=== PATIENT | female | born 1945 | race Caucasian/White ===

== ENCOUNTER → 2016-10-29 | Outpatient (CLI) | payer MEDICARE, OTHER ==
[~2016-10-29] MED LIST: ASPIRIN E.C. 8181 MG PO; CA; FOSAMAX PO; GLUCOSAMINE & C1 CA1 PO; LEVOTHYROXINE PO; MVI; NO HOME MEDICATIONS; ZANTAC 150MG T150 MG PO
== END ==
LOC: MC.RAD 11:10
DX: Z12.31 Encounter for screening mammogram for malignant neoplasm of breast (principal); R92.1 Mammographic calcification found on diagnostic imaging of breast

== ENCOUNTER → 2017-11-25 | Outpatient (CLI) | payer MEDICARE, OTHER | LOC: MC.RAD 09:46 | DX: Z12.31 Encounter for screening mammogram for malignant neoplasm of breast (principal) ==

== ENCOUNTER → 2018-11-28 | Outpatient (CLI) | payer MEDICARE, OTHER | LOC: MC.RAD 13:30 | DX: Z12.31 Encounter for screening mammogram for malignant neoplasm of breast (principal) ==

== ENCOUNTER → 2019-12-03 | Outpatient (CLI) | payer MEDICARE, OTHER | LOC: MC.RAD 10:45 | DX: Z12.31 Encounter for screening mammogram for malignant neoplasm of breast (principal); Z90.10 Acquired absence of unspecified breast and nipple ==

== ENCOUNTER → 2020-12-13 | Outpatient (CLI) | payer MEDICARE | LOC: MC.RAD 11:30 | DX: Z12.31 Encounter for screening mammogram for malignant neoplasm of breast (principal) ==

== ENCOUNTER → 2022-01-15 | Outpatient (CLI) | payer MEDICARE | LOC: MC.RAD 10:02 | DX: Z12.31 Encounter for screening mammogram for malignant neoplasm of breast (principal) ==

== ENCOUNTER → 2023-10-03 | Outpatient (CLI) | payer MEDICARE ==
[~2023-10-03] MED LIST changes: +FOSAMAX 35MG35 MG PO; +LEVOXYL0.1 MG PO; +MOVE FREE JOIN1 EACH PO; +NORCO 325 MG-51 TAB PO; +OSCAL 500 TAB500 MG PO; +PRILOSEC 20MG20 MG PO; +TYLENOL 500MG500 MG PO; +VITAMIN D31000 I1 PO; +ZYRTEC 10MG10 MG PO
== END ==
LOC: MC.RAD 12:53
DX: C50.512 Malignant neoplasm of lower-outer quadrant of left female breast (principal)
CPT/HCPCS: A4648

== ENCOUNTER 2023-10-04 07:35 | Day surgery (SDC) | payer MEDICARE ==
[~2023-10-04] VITALS: Ht 165.1 cm; Wt 72.6 kg
[~2023-10-04 07:35] MED LIST changes: +LR 1,000 ML IV SCH
--- NOTE | 2023-10-04 08:10 | NUR ---
The patient arrived to [facility] escorted by radiology and apppeared to tolerate the activity well. The patient was shown to [place] [address] and appears to be restingo comfortably on the cart. Vital signs obtained. Consent signed. Home medications reconcilled. Warm blanket provided. Call light is within reach. Daughter brought back to be at her bedside. The patient is scheduled to go back to radiology at 0930 to have the remainder of her images taken. Once she returns to the units an IV will be started and her PreOp medications will be given.
[2023-10-04 08:22] VITALS: BP 154/78; PULSE 81; TEMP 97
--- NOTE | 2023-10-04 10:34 | NUR ---
The patient is back from radiology and was assisted back on the cart in her room. The patient was given fresh warm blankets. IV started in right hand with LR infusing without difficulty. Pre op medications were adminstered as ordered.
[2023-10-04] MEDS ORDERED: Midazolam 2 MG/2 ML VIAL ONE (10:37)
[2023-10-04] MEDS ORDERED: Lidocaine PF 2% (20 MG/ML) 5 ML VIAL ONE (10:37)
[2023-10-04] MEDS ORDERED: Ondansetron 4 MG/2 ML VIAL ONE (10:37)
[2023-10-04] MEDS ORDERED: fentaNYL 50 MCG/ML 2 ML VIAL ONE (10:37)
[2023-10-04] MEDS ORDERED: Lidocaine PF 2% (20 MG/ML) 5 ML VIAL SQ ONE ×2 (11:50)
[2023-10-04] MEDS ORDERED: Ondansetron 4 MG/2 ML VIAL IV PRN (13:15)
[2023-10-04] MEDS ORDERED: Morphine 4 MG/ML VIAL IV PRN (13:15)
[2023-10-04] MEDS ORDERED: NORCO 325 MG-51 TAB PO (13:17)
[2023-10-04] MEDS ORDERED: fentaNYL 50 MCG/ML 2 ML VIAL IV ONE ×3 (13:20→13:40)
[2023-10-04 13:43] VITALS: TEMP 96.9
[2023-10-04 14:05] VITALS: BP 144/74; PULSE 71
--- NOTE | 2023-10-04 14:05 | NUR ---
PATIENT RETURNS TO ROOM 2 PER CART ACCOMPANIED BY KEVIN SOLITARIO FROM PACU. PATIENT IS ALERT AND ORIENTED. DRESSING X2 ON LEFT LOWER BREAST AND LEFT AXILLA AREA CLEAN AND DRY. IVF INFUSING RH. HOB ELEVATED FOR COMFORT. DAUGHTER IN ROOM AND CALL LIGHT IN REACH. DENIES PAIN OR NAUSEA. WILL CONTINUE TO MONITOR.
[2023-10-04 14:20] VITALS: BP 146/62; PULSE 72
--- NOTE | 2023-10-04 14:20 | NUR ---
DRINKING WATER. OFFERED SNACK AND WISHES TO EAT HOME. OFFERED JUICE OR SPRITE AND WISHES TO DRINK ONLY WATER. HAS BEEN TALKING WITH DAUGHTER. DENIES NEED FOR PAIN MEDICATION AND DENIES NAUSEA.
[2023-10-04 14:35] VITALS: BP 120/65; PULSE 66
--- NOTE | 2023-10-04 14:35 | NUR ---
STATES SHE IS WANTING TO HOME NOW. AGAIN OFFERED SNACK AND REFUSES. STATES SHE HAS FOOD AND WANTS TO GET HOME DUE TO THE WEATHER. DAUGHTER IS HERE AND WILL PROVIDE TRANSPORTATION.
--- NOTE | 2023-10-04 14:45 | NUR ---
IV DISCONTINUED AND SITE IS FREE OF REDNESS. ASSISTED WITH DRESSING BY DAUGHTER. DRESSINGS REMAIN CLEAN AND DRY.
--- NOTE | 2023-10-04 14:48 | NUR ---
DISMISSAL INSTRUCTIONS GIVEN AND VOICES UNDERSTANDING OF THESE. FOLLOW UP APPOINTMENT DATE AND TIME PROVIDED.
--- NOTE | 2023-10-04 14:55 | NUR ---
PATIENT DISCHARGED TO HOME DRIVEN BY DAUGHTER AND TAKEN TO PRIVATE VEHCILE BY WHEELCHAIR AND ASSISTED INTO CAR BY YANELY SOLITARIO.
== END 2023-10-04 14:55 | disposition home or self-care (01) ==
LOC: SDCO 07:35
DX: C50.512 Malignant neoplasm of lower-outer quadrant of left female breast (principal); R92.0 Mammographic microcalcification found on diagnostic imaging of breast; Z85.3 Personal history of malignant neoplasm of breast; Z87.891 Personal history of nicotine dependence
CPT/HCPCS: A4648; J0665; J0694; J2250; J2405; J2704; J3010; J7120

== ENCOUNTER → 2024-03-12 | Outpatient (CLI) | payer MEDICARE ==
[~2024-03-12] MED LIST changes: -LR 1,000 ML IV SCH
== END ==
LOC: MC.RAD 08:41
DX: Z12.31 Encounter for screening mammogram for malignant neoplasm of breast (principal)